=== PATIENT | male | born 1985 | race African-American/Black ===

== ENCOUNTER → 2024-08-20 | Outpatient (CLI) | payer OTHER ==
--- NOTE | 2024-08-20 18:49 | HMCSR ---
APPROVED REPORT EXAM: Two-dimensional and M-mode echocardiogram with Doppler and color Doppler. INDICATION ICD: I50.23 Acute or chronic systolic CHF 2D Dimensions RVDd4.3 cmLVEF(%)13.0 (>50%)LVED Vol(simp.)552.0 mL IVSd0.7 (0.7-1.1cm)FS(%)6 %LVES Vol(simp.)444.0 mL LVDd9.8 (3.8-5.6cm)LA (2D)5.9 (1.6-4.0cm)LVEF(%, simp.)20 % PWd0.9 (0.7-1.1cm)Ao Root(2D)3.5 (2.0-3.7cm)LA ESV INDEX (4CH)51.20 mL/m2 IVSs0.9 cmLVOT diam3.2 (1.8-2.4cm)LA ESV INDEX (2CH)62.60 mL/m2 LVDs9.2 (2.5-4.0cm)LA ESV INDEX (BP)60.20 mL/m2 PWs1.3 cm M-Mode Dimensions EPSS4.0 cm LA (MM)5.8 (1.6-4.0cm) Ao Root(MM)3.3 (2.0-3.7cm) Aortic Valve AoV VTI0.2 mAo Mean GR4.0 mmHgLVOT VTI0.09 m CORBY (VMAX)3.3 cm2AVA (VTI) 3.3 cm2 Mitral Valve MV E Ingd046.7 cm/sDECEL Pwtg848 ms MV A Vmax65.5 cm/sP 1/2 T44 ms E/A ratio1.6MVA (PHT)5.0 cm2 MR Max PG109 mmHg TDI E/E' Hqqngt22.7E/E' Lcpxtny99.1 Medial E' Peak V3.20 cm/sLateral E' Peak V5.10 cm/s Pulmonary Valve PV Vmax0.7 m/sPI End Dahlia. Surinder 179.2 cm/s PV Peak GR2.1 mmHg Tricuspid Valve RAP (EST) 3 mmHgRVSP3.0 mmHg Left Ventricle Spherical LV severely dilated, 9.8cm. Inferior and inferoseptal akinesia, severe global hypokinesia. There is normal left ventricular wall thickness. LVEF is 10%. Grade II diastolic dysfunction with charly vated mean LV filling pressure. Right Ventricle The right ventricle is normal size. Right ventricular systolic function is moderately reduced. Atria The left atrium is severely dilated. LASVI 60mL/m. The right atrium is moderately dilated. Aortic Valve The aortic valve is normal in structure. Trace of aortic regurgitation is present. There is no aortic valvular stenosis. Mitral Valve The mitral valve is normal in structure. There is mild to moderate mitral valve regurgitation noted. There is no mitral valve stenosis. Tricuspid Valve The tricuspid valve is normal in structure. There is no tricuspid valve regurgitation noted. Pulmonic Valve The pulmonary valve is normal in structure. There is trace of pulmonic valvular regurgitation. Great Vessels The aortic root is normal in size. The IVC is normal in size and collapses >50% with inspiration. Pericardium There is no pericardial effusion. Other Information Quality : Good Conclusion LVEF is 10%. Spherical LV severely dilated, 9.8cm. Inferior and inferoseptal akinesia, severe global hypokinesia. Grade II diastolic dysfunction with elevated mean LV filling pressure. The left atrium is severely dilated. LASVI 60mL/m. The right atrium is moderately dilated. There is mild to moderate mitral valve regurgitation noted.
== END | disposition home or self-care (01) ==
LOC: EEVIPCON 11:16 → RAH 11:16
PROVIDERS: ATTEND Family Medicine
DX: I34.0 Nonrheumatic mitral (valve) insufficiency (principal); I50.23 Acute on chronic systolic (congestive) heart failure
CPT/HCPCS: 93306

== ENCOUNTER → 2024-12-04 | Outpatient (CLI) | payer OTHER | END | disposition home or self-care (01) | LOC: RAH 11:34 | PROVIDERS: ATTEND Internal Medicine Cardiovascular Disease | DX: I08.8 Other rheumatic multiple valve diseases (principal); I21.A1 Myocardial infarction type 2; I42.9 Cardiomyopathy, unspecified | CPT/HCPCS: 93306 ==